=== PATIENT | female | born 1950 | race Caucasian/White ===

== ENCOUNTER 2018-04-22 08:49 | Outpatient (CLI) | payer MEDICARE ==
--- NOTE | 2018-04-22 11:46 | CT ---
CT ABDOMEN AND PELVIS WITH IV CONTRAST: DATE: 04/22/18. HISTORY: Intermittent epigastric abdominal pain, shortness of breath, nausea, and belching. Gastric reflux. History of pancreatic cancer. COMPARISON: None available. FINDINGS: The lung bases are clear. The liver, spleen, pancreas, bilateral adrenal gland, kidneys, and incompletely distended urinary j carlos dder demonstrate a normal CT appearance. The fernández of the urinary bladder do appear mildly thickened, and this may be related to contracted na ture of the gallbladder. There is no pericholecystic fluid or inflammatory stranding identified on t his exam. Opacified small bowel has a normal CT appearance. There is evidence of colonic diverticulosis. There appears to be mild thickening involving the fernández of the proximal body and fundus of the stomach, bu t this is likely attributable to incomplete distention. A small fat-containing umbilical hernia is identified. Mild degenerative changes are seen in the spine. No free fluid, fluid collection, or lymphadenopathy is seen in the abdomen or pelvis. The uterus is not visualized, likely related to prior hysterectomy. IMPRESSION: 1. No acute findings are seen in the abdomen or pelvis. 2. Colonic diverticulosis. 3. Hysterectomy. 4. Small fat-containing umbilical hernia. 5. Mild gallbladder wall thickening, but this may be related to the contracted state of the gallblad rika. There is no pericholecystic fluid or inflammatory changes seen on this examination. POS: DORY
== END 2018-04-22 08:50 | disposition home or self-care (01) ==
LOC: SCSCT 08:49
PROVIDERS: ATTEND Family Medicine
DX: R10.13 Epigastric pain (principal); E11.9 Type 2 diabetes mellitus without complications; Z12.4 Encounter for screening for malignant neoplasm of cervix; K57.30 Diverticulosis of large intestine without perforation or abscess without bleeding; K42.9 Umbilical hernia without obstruction or gangrene; K82.8 Other specified diseases of gallbladder
CPT/HCPCS: 74177; 82565; 84520

== ENCOUNTER 2018-06-11 13:40 | Outpatient (CLI) | payer MEDICARE | END 2018-06-11 13:41 | disposition home or self-care (01) | LOC: BICMAMMO 13:40 | PROVIDERS: ATTEND Family Medicine | DX: Z12.31 Encounter for screening mammogram for malignant neoplasm of breast (principal) | CPT/HCPCS: 77063; 77067 ==